=== PATIENT | female | born 1980 | race Caucasian/White ===

== ENCOUNTER 2016-06-24 06:03 | Inpatient (IN) | payer MEDICAID, OTHER ==
[~2016-06-24] VITALS: Ht 165.1 cm; Wt 75.4 kg
[~2016-06-24 06:03] MED LIST: DOCO200C7 PO; HYDR-3989 PO; IBUP-1547 PO; MAGN400C PO; PREN1TAB73 PO
[2016-06-24] MEDS ORDERED: ACETAMINOPHEN 500 MG TABLET PO PRN (06:15)
[2016-06-24] MEDS ORDERED: OXYTOCIN 30 UNIT in D5LR 500 ML PRN (06:15)
[2016-06-24] MEDS ORDERED: LIDOCAINE 1% (10mg/ml) 2ml SDV ID PRN (06:15)
[2016-06-24] MEDS ORDERED: MAG-AL + SIM LIQUID 30 ML UDC PO PRN (06:15)
[2016-06-24] MEDS ORDERED: CALCIUM CARBONATE 500mg Chewable TAB PO PRN (06:15)
[2016-06-24 06:41] LABS: HCT - HEMATOCRIT 35.8 % (36-46); MEAN CORPUSCULAR HGB 34.9 UUG (26-34); MEAN CORPUSCULAR HGB CONC(MCHC 33.5 GM/DL (31-37); MEAN CORPUSCULAR VOLUME 104.1 UM3 (80-100); MEAN PLATELET VOLUME 8.8 UM3 (9.4-12.4); RED BLOOD COUNT 3.44 M/MM3 (4.00-5.20); WBC - WHITE BLOOD COUNT 8.9 T/MM3 (4.5-11.0)
[2016-06-24] MEDS: LR 1,000 ML IV PRN ×3 (06:46→09:43)
[2016-06-24 06:48] VITALS: BP 106/56; PULSE 86; RESP 14; TEMP 98.5; O2SAT 99
[2016-06-24] MEDS ORDERED: D5LR 1,000 ML IV PRN (07:00)
--- NOTE | 2016-06-24 08:33 | ANESOB ---
Epidural/ Date/Time DATE: 06/24/16 TIME: 824 Preop Diagnosis Procedure: Labor Epidural Plan: Epidural Height: 5 ' 5.00 " Weight: 75.400 kg BMI: kg/m2 P:4 Medications & Allergies Inpatient Medications Current Medications Medications (Trade) Dose Ordered Sig/Sheri Start Time Stop Time Status Last Admin Dose Admin Dextrose/Lactated Ringer's 1,000 ml @ 0 mls/hr Q0M PRN 06/24/16 07:00 06/24/16 06:47 0 MLS/HR Oxytocin/Dextrose/ Lactated Ringer's (Pitocin/D5lr) 503 ml @ 0 mls/hr Q0M PRN 06/24/16 06:15 06/24/16 06:46 0 MLS/HR Lidocaine HCl 0.2 mg 0.2 mg PRN PRN 06/24/16 06:15 Lactated Ringer's (Lactated Ringers) 1,000 ml @ 0 mls/hr Q0M PRN 06/24/16 06:04 06/24/16 06:46 0 MLS/HR Acetaminophen (Tylenol Extra Strength) 1-2 TABS = 500-1,000 MG Q4H PRN 06/24/16 06:15 Al Hydroxide/Mg Hydroxide (Maalox) 30 ml Q4H PRN 06/24/16 06:15 Calcium Carbonate (TUMS Regular Strength) 1-2 TABS Q2H PRN 06/24/16 06:15 Magnesium Oxide (Magnesium) 400 Mg Capsule, 400 MG PO DAILY, (Reported) Last Taken: on 06/23/162229 Pnv95/Ferrous Fumarate/FA ( Tablet) 1 Each Tablet, 1 TAB PO DAILY, (Reported) Last Taken: on 06/23/162229 Discontinued Medications Docosahexanoic Acid ( Dha) 200 Mg Capsule, 1 CAP PO DAILY, (Reported) Hydrocodone/Apap ([place] 5-325 Tablet) 1 Tab Tablet, 1-2 TAB PO Q4H PRN for PAIN Discontinued Reason: Medication Stopped Ibuprofen (Ibuprofen) 800 Mg Tablet, 800 MG PO Q8H PRN for PAIN Discontinued Reason: Medication Stopped Coded Allergies: gluten (Verified Allergy, Mild, 06/24/16) Medical/Surgical History Anesthesia PMH: Denies: *Diabetes, Anesthesia Reactions, Malignant Hyperthermia Smoking Status: Never smoker Does patient use chewing tobac: No Substance Use Type: does not use Alcohol Intake: none Last Drink: hours (ago) (4) Anesthesia Adverse Reactions: FOUND none Family Hx of Anesthesia Advers: none Hx of Motion Sickness: No Complications During : No Pertinent Findings Laboratory Tests 06/24/16 06:25 Physical Exam Respiratory: Lungs clear Cardiovascular: Regular rate, rhythm Airway Assessment Mallampati Score: I TMD: 3 Fingerbreadths Neck Extension: Good Overall Assessment: May Be Diff Mask Vent., May Be Diff Intubation ASA: 2 Discussion Discussed risks/options/alternatives of anesthesia. Patient consents. Nursing pain assessment noted. Present for Discussion: Present: Spouse Attestation Statement Prior to the delivery of any anesthetic medication, I examined the patient, developed the plan, obtained the patient's consent and discussed the risk and benefits of the procedure with the patient/guardian. If the note happens to be signed after anesthesia start time, it is only due to providing efficient care of the patient and documenting at a time when the computer is available. SERGIO GUERRERO CRNA Jun 24, 2016 08:33
[2016-06-24] MEDS ORDERED: DiphenhydrAMINE 50 MG/ML INJECTION IV PRN (08:45)
[2016-06-24] MEDS ORDERED: NALOXONE 0.4mg/ml INJECTION IV PRN (08:45)
[2016-06-24] MEDS ORDERED: ROPIVACAINE 1% 200 MG, SUFENTANIL 50 MCG in NORMAL SALINE 80 ML EPI PRN (08:45)
[2016-06-24] MEDS ORDERED: ONDANSETRON 4mg/2ml INJECTION IV PRN (08:45)
[2016-06-24] MEDS ORDERED: OXYTOCIN 30 UNIT in D5W 500 ML IV ONE (11:45)
[2016-06-24] MEDS ORDERED: PHENYLEPHRINE RECTAL SUPPOSITORY RECTALLY PRN (11:45)
[2016-06-24] MEDS ORDERED: MILK OF MAGNESIA 30 ML SUSP PO PRN (11:45)
[2016-06-24] MEDS ORDERED: DiphenhydrAMINE 25 MG CAPSULE PO PRN (11:45)
[2016-06-24] MEDS ORDERED: HYDROCORTISONE 2.5% CREAM 30 GM RECTALLY PRN (11:45)
[2016-06-24] MEDS: IBUPROFEN 800 MG TABLET PO PRN ×2 (14:39→23:09)
[2016-06-24 15:10] VITALS: BP 95/55; PULSE 68; RESP 14; TEMP 98.2; O2SAT 100
--- NOTE | 2016-06-24 15:18 | NUR ---
Epidural Epidural catheter removed without complications, tip intact, no S/S of infection noted. Area cleansed with alcohol, betadine and covered with a bandaid. Pt. educated about S/S of infection and to call doctor with concerns.
--- NOTE | 2016-06-24 17:23 | ANESPO ---
Post-Op Note Date 06/24/16 Time: 17:09 Status Pt Participated in Evaluation: Pt participated in person Vital Signs Date Time Temp Pulse Resp B/P Pulse Ox O2 Delivery O2 Flow Rate FiO2 06/24/16 15:10 98.2 68 14 95/55 100 Room Air Respiratory Function: Airway patent Cardiovascular Function: Regular pulse Mental Status: Alert/oriented Pain Level Intensity: 0 Hydration: Taking po fluids Complications during Recovery None apparent Follow-Up Instructions Instructions Per Surgeon Additional Information full motor and sensation has returned SERGIO GUERRERO CRNA Jun 24, 2016 17:23
[2016-06-24 23:16] VITALS: BP 110/64; PULSE 80; RESP 16; TEMP 98.4
[2016-06-24] MEDS: LR 1,000 ML IV SCH (23:58)
[2016-06-25] VITALS (29 sets, daily range): BP systolic 82–111; BP diastolic 48–67; PULSE 55–82; RESP 10–20; TEMP 75–98.3; O2SAT 97–100
[2016-06-25] MEDS ORDERED: MORPHINE SULFATE 4 MG SYRINGE IV PRN (00:05)
[2016-06-25] MEDS ORDERED: ONDANSETRON 4mg/2ml INJECTION IV PRN (00:05)
--- NOTE | 2016-06-25 02:35 | NUR ---
SHIFT SUMMARY: VSS, pt's pain controlled with PO Motrin. Fundus firm at umbilicus, light lochia. RN assist pt to BRP and performed pericare at start of shift. Pt up ad mai, voiding and performing own marian care by self w/o complication. General diet tolerated. well, no assistance needed with latch or positioning. Consent signed for tubal ligation in the AM. IV in pt's left hand infusing LR @ 125ml/hr. Pt bonding and caring for baby appropriately.
[2016-06-25 05:25] LABS: HCT - HEMATOCRIT 28.6 % (36-46); HGB - HEMOGLOBIN 9.5 GM/DL (12-16); MEAN CORPUSCULAR HGB 34.7 UUG (26-34); MEAN CORPUSCULAR HGB CONC(MCHC 33.2 GM/DL (31-37); MEAN CORPUSCULAR VOLUME 104.4 UM3 (80-100); MEAN PLATELET VOLUME 8.7 UM3 (9.4-12.4); RED BLOOD COUNT 2.74 M/MM3 (4.00-5.20); WBC - WHITE BLOOD COUNT 10.3 T/MM3 (4.5-11.0)
--- NOTE | 2016-06-25 06:24 | NUR ---
OR Pt taken by wheelchair to OR at this time.
--- NOTE | 2016-06-25 06:36 | NUR ---
Call to Dr. Lawler results called to Dr. Wade.
--- NOTE | 2016-06-25 06:47 | ANESPREOP ---
Anesthesia Record Date and Time DATE: 06/25/16 TIME: 06:45 Proposed Surgical Procedure post tubal ligation NPO since: 06/24/16 Allergies: Coded Allergies: gluten (Verified Allergy, Mild, 06/24/16) Ht/Wt/BMI Height: 5 ' 5.00 " Weight: 75.400 kg BMI: kg/m2 Vital Signs Date Time Temp Pulse Resp B/P Pulse Ox O2 Delivery O2 Flow Rate FiO2 06/24/16 23:16 98.4 80 16 110/64 Room Air 06/24/16 15:10 100 Medications Inpatient Medications Current Medications Medications (Trade) Dose Ordered Sig/Sheri Start Time Stop Time Status Last Admin Dose Admin Dextrose/Lactated Ringer's 1,000 ml @ 0 mls/hr Q0M PRN 06/24/16 07:00 06/24/16 11:45 DC 06/24/16 06:47 0 MLS/HR Oxytocin/Dextrose/ Lactated Ringer's (Pitocin/D5lr) 503 ml @ 0 mls/hr Q0M PRN 06/24/16 06:15 06/24/16 11:45 DC 06/24/16 06:46 0 MLS/HR Lidocaine HCl 0.2 mg 0.2 mg PRN PRN 06/24/16 06:15 06/24/16 11:45 DC Lactated Ringer's (Lactated Ringers) 1,000 ml @ 0 mls/hr Q0M PRN 06/24/16 06:04 06/24/16 11:45 DC 06/24/16 09:43 0 MLS/HR Acetaminophen (Tylenol Extra Strength) 1-2 TABS = 500-1,000 MG Q4H PRN 06/24/16 06:15 Al Hydroxide/Mg Hydroxide (Maalox) 30 ml Q4H PRN 06/24/16 06:15 Calcium Carbonate 1-2 TABS Q2H PRN 06/24/16 06:15 Ropivacaine/ Sufentanil Citrate/Sodium Chloride (Naropin/Sufenta/ NS) 101 ml @ 10 mls/hr PRN PRN 06/24/16 08:45 06/25/16 01:55 DC Naloxone HCl (Narcan) 0.1 mg Q2M PRN 06/24/16 08:45 06/25/16 01:55 DC Ondansetron HCl (Zofran) 4 mg Q6H PRN 06/24/16 08:45 06/24/16 11:45 DC Diphenhydramine HCl (Benadryl) 25-50 MG = 0.5-1 ML Q3H PRN 06/24/16 08:45 06/25/16 01:55 DC Ibuprofen (Motrin) 800 mg Q8H PRN 06/24/16 11:45 06/24/16 23:09 800 MG Acetaminophen/ Hydrocodone Bitart ([place] 5/325) Not to exceed 10 tabs in... Q4H PRN 06/24/16 11:45 Docusate Calcium (SURFAK 240 mg) 240 mg DAILY 06/25/16 09:00 Magnesium Hydroxide (Mom) 30 ml DAILY PRN 06/24/16 11:45 Diphenhydramine HCl (Benadryl) 1-2 TABS Q6H PRN 06/24/16 11:45 06/25/16 01:55 DC Phenylephrine HCl (Anusol Suppository) 1 supp PRN PRN 06/24/16 11:45 Hydrocortisone 1 applic 1 applic PRN PRN 06/24/16 11:45 Lactated Ringer's (Lactated Ringers) 1,000 ml @ 125 mls/hr Q8H 06/25/16 00:05 06/24/16 23:58 125 MLS/HR Morphine Sulfate (Morphine) 2-4 Q2H PRN 06/25/16 00:05 Ondansetron HCl (Zofran) 4 mg Q4H PRN 06/25/16 00:05 Magnesium Oxide (Magnesium) 400 Mg Capsule, 400 MG PO DAILY, (Reported) Last Taken: on 06/23/162229 Pnv95/Ferrous Fumarate/FA ( Tablet) 1 Each Tablet, 1 TAB PO DAILY, (Reported) Last Taken: on 06/23/162229 Discontinued Medications Docosahexanoic Acid ( Dha) 200 Mg Capsule, 1 CAP PO DAILY, (Reported) Hydrocodone/Apap ([place] 5-325 Tablet) 1 Tab Tablet, 1-2 TAB PO Q4H PRN for PAIN Discontinued Reason: Medication Stopped Ibuprofen (Ibuprofen) 800 Mg Tablet, 800 MG PO Q8H PRN for PAIN Discontinued Reason: Medication Stopped Currently on Beta Carolyn: No Medical/Surgical History Smoking Status: Never smoker Use Chewing Tobacco?: No Substance Use Type: does not use Last Drink: hours (ago) (4) Past Surgical History Orthopedic Surgeries: Abdominal Surgeries: Genitourinary Surgeries: Cardiac Surgeries: Endocrine Surgeries: Reproductive Surgeries: Neurological Surgeries: Ear Surgeries: Nose Surgeries: Throat Surgeries: Other Surgeries: Anesthesia Adverse Reactions: FOUND none Family Hx of Anesthesia Advers: none Hx of Motion Sickness: No Pertinent Findings Laboratory Tests 06/25/16 05:01 EKG Rhythm: Sinus Rhythm Physical Exam Respiratory: Bilat breath sounds equal, Lungs clear Cardiovascular: FOUND Regular rate, rhythm Airway Assessment Mallampati Score: II TMD: 3 Fingerbreadths Neck Extension: Good Overall Assessment: May Be Diff Mask Vent., May Be Diff Intubation ASA: 2 Discussion Discussed risks/options/alternatives of anesthesia and questions answered. Patient consents. Nursing pain assessment noted. Present: Spouse Attestation Statement Prior to the delivery of any anesthetic medication, I examined the patient, developed the plan, obtained the patient's consent and discussed the risk and benefits of the procedure with the patient/guardian. CHRISS ROLLE Jun 25, 2016 06:47
[2016-06-25] MEDS ORDERED: BUPIVACAINE 0.25% (2.5mg/ml) INJ 30ml SDV ONE (06:52)
[2016-06-25] MEDS ORDERED: MIDAZOLAM 2mg/2ml INJECTION ONE (06:53)
[2016-06-25] MEDS ORDERED: FENTANYL 100mcg/2ml INJECTION ONE (06:53)
[2016-06-25] MEDS ORDERED: PROPOFOL 500mg 50 ML IV ONE (07:01)
--- NOTE | 2016-06-25 07:09 | PNPDOC ---
Progress Note PPD1 Rubella: Immune GBS: Negative Blood Type:A pos Subjective 06/25/16 Lochia: Minimal Pain: Controlled Voiding: Voiding She desires a PPTL. Objective Vital Signs Date Time Temp Pulse Resp B/P Pulse Ox O2 Delivery O2 Flow Rate FiO2 06/25/16 06:42 98.3 78 15 106/67 99 Room Air General: Alert and Oriented Abdomen: Fundus Firm, Non-tender Extremities: Non-tender Laboratory Item Value Date Time Hemoglobin 9.5 GM/DL L # 06/25/16 0501 Assessment (1) (spontaneous vaginal delivery) Plan: Routine Care (2) Request for sterilization Assessment & Plan: PPTL. We reviewed that this is a permanent procedure, but there is also a risk of failure and ectopic. Q&A. She desires to proceed. (3) Acute blood loss anemia Plan: JANE Parker MD Jun 25, 2016 07:09
[2016-06-25] MEDS ORDERED: HYDR-4246 PO (07:22)
[2016-06-25] MEDS ORDERED: IRON150C5 PO (07:22)
[2016-06-25] MEDS ORDERED: IBUP-1547 PO (07:22)
--- NOTE | 2016-06-25 08:05 | GYNOPNOTE1 ---
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
[2016-06-25] MEDS: HYDROMORPHONE 2mg/ml INJECTION IV PRN ×2 (08:31→08:43)
--- NOTE | 2016-06-25 08:45 | LDNF ---
DATE 06/24/2016 Anita is a 35-year-old 5, para 4 at 39 weeks 2 days gestational age who was brought in for a Pitocin induction this morning because she desires a tubal ligation. Her membranes were ruptured artificially returning clear fluids. She received an epidural. She progressed nicely throughout labor. She only had to push for two contractions and had a spontaneous vaginal delivery of a viable male , Apgars 9/9, weight 4115 grams, name "Samson". The baby was vigorous at delivery so he was placed on mom's abdomen. The cord clamping was delayed for more than two minutes. The cord started to tear a little bit during cord clamping. There was still a small leakage of blood from the umbilical cord, so a second cord clamp was placed below the first one and then no bleeding was seen. The placenta delivered spontaneously. She had a small second-degree laceration that was repaired in the standard fashion. Mom and baby tolerated the delivery well. LUIS
[2016-06-25] MEDS: LR 1,000 ML IV SCH (08:49)
[2016-06-25] MEDS ORDERED: DOCUSATE CALCIUM 240 MG CAPSULE PO SCH (09:00)
[2016-06-25] MEDS ORDERED: METOCLOPRAMIDE 10mg/2ml INJECTION IV ONE (09:15)
--- NOTE | 2016-06-25 09:25 | NUR ---
On Unit Pt back to unit from OR at this time moved to bed with transfer board. Reports pain at 6/10 in back from spinal and abdomen. Rice bag provided and ice chips give. VSS.
[2016-06-25] MEDS: IBUPROFEN 800 MG TABLET PO PRN ×2 (10:04→22:36)
[2016-06-25] MEDS: HYDROCODONE/APAP 5 mg/325 mg TABLET PO PRN ×3 (10:05→18:38)
--- NOTE | 2016-06-25 10:52 | ANESPO ---
Post-Op Note Date 06/25/16 Time: 10:51 Status Pt Participated in Evaluation: Pt participated in person Vital Signs Date Time Temp Pulse Resp B/P Pulse Ox O2 Delivery O2 Flow Rate FiO2 06/25/16 10:29 76 16 100/61 99 06/25/16 10:00 Room Air 06/25/16 09:28 97.9 Respiratory Function: Airway patent Cardiovascular Function: Regular pulse Mental Status: Alert/oriented Pain Level Intensity: 2 Hydration: Taking po fluids Complications during Recovery None apparent Follow-Up Instructions Instructions Per Surgeon SERGIO GUERRERO CRNA Jun 25, 2016 10:52
--- NOTE | 2016-06-25 11:10 | OPNOTEF ---
DATE OF OPERATION 06/25/2016 PREOPERATIVE DIAGNOSIS 1. Desires permanent sterilization. 2. Status post spontaneous vaginal delivery. POSTOPERATIVE DIAGNOSIS 1. Desires permanent sterilization. 2. Status post spontaneous vaginal delivery. PROCEDURE tubal ligation via modified [place] method. SURGEON Violeta Wade MD ANESTHESIA Spinal COST ESTIMATING CLERK Marty Ohara CRNA COMPLICATIONS None. EBL 10 mL FINDINGS Fundus firm at the level of the umbilicus. Normal-appearing tubes and ovaries. DESCRIPTION OF PROCEDURE The patient was taken to the operating room where anesthesia was obtained. She was placed in the dorsal supine position. She voided just prior to coming back to the operating room. She was prepared and draped in the normal sterile fashion. The subumbilical skin and tissue was injected with local. Two Allis clamps were placed on the infraumbilical skin just lateral to the umbilicus. An incision was made between the two Allis clamps. The underlying tissue was opened with a Jocelyn. The fascia was grasped with a Jocelyn and entered sharply with the Metzenbaum scissors. The peritoneum was entered during this process as well. The fascial incision was extended laterally. The patient was then tilted to her right. [place] retractors were used to retract the abdominal wall to visualize to the left fallopian tube. This was grasped with a Murtaugh and carried out to the fimbria. An avascular segment was ligated with chromic. Each end of the segment was ligated with silk. The tube segment was excised with good hemostasis noted. The remaining tube was injected with local. The tube was allowed to fall freely back into the abdomen. The patient was tilted to her left and this was all repeated with the right fallopian tube. Good hemostasis was also noted. The patient was flattened and all instruments were removed. The fascia was closed with running 0 Vicryl. Hemostasis was obtained in the subcutaneous tissue with the cautery. The skin was closed with 4-0 Vicryl in a subcuticular manner. Dermabond was placed. Sponge and sharp counts were correct. The patient tolerated the procedure well and was taken to the recovery room in good condition. [facility]PITAL[facility]
[2016-06-25] MEDS: IRON POLYSACCHARIDES COMPLEX 150 MG CAPSULE PO SCH (11:45)
--- NOTE | 2016-06-25 15:00 | NUR ---
Shift Summary VSS. Voiding and providing self cares. Pain controlled with oral pain meds. Breast feeding well x2.
--- NOTE | 2016-06-26 02:48 | NUR ---
Chart Check 24 hour chart check completed
--- NOTE | 2016-06-26 02:49 | NUR ---
SHIFT SUMMARY: VSS, pt's pain controlled with PO Motrin and [place] 5. Fundus firm at umbilicus, scant to light lochia. PPTL incision intact with Dermabond, no s/s of infection. IV dc'd, no complications. Pt up ad mai, voiding and performing own personal cares. General diet tolerated. Pt baby well, no RN assistance needed. Pt bonding and caring for baby appropriately. Baby currently in nursery to allow pt to sleep.
[2016-06-26] MEDS: HYDROCODONE/APAP 5 mg/325 mg TABLET PO PRN ×2 (03:25→07:48)
[2016-06-26 07:00] VITALS: BP 114/65; PULSE 85; RESP 16; TEMP 97.7; O2SAT 100
[2016-06-26] MEDS: IBUPROFEN 800 MG TABLET PO PRN (07:48)
--- NOTE | 2016-06-26 08:05 | PNPDOC ---
Progress Note PPD2 Rubella: Immune GBS: Negative Blood Type:A pos Subjective 06/26/16 Lochia: Moderate Pain: Controlled Voiding: Voiding Nausea and Vomiting: No Nausea/Vomiting Objective VSS AF Vital Signs Date Time Temp Pulse Resp B/P Pulse Ox O2 Delivery O2 Flow Rate FiO2 06/26/16 07:00 97.7 85 16 114/65 100 Room Air General: Alert and Oriented Respiratory: Non-labored Abdomen: Fundus Firm Incision: Clean/Dry/Intact Extremities: Non-tender 1+ Assessment Tubal Ligation (1) (spontaneous vaginal delivery) Plan: Routine Care (2) Request for sterilization Assessment & Plan: PPTL. We reviewed that this is a permanent procedure, but there is also a risk of failure and ectopic. Q&A. She desires to proceed. Plan: Discharge Home (3) Acute blood loss anemia Plan: [place], Discharge Home Plan Discharge Home (Rx of [place] and Ibuprofen given to patient on 06/25 to fill prior to leaving hospital.) GARRISON FOLEY APRN Jun 26, 2016 08:05
[2016-06-26] MEDS: IRON POLYSACCHARIDES COMPLEX 150 MG CAPSULE PO SCH (09:13)
--- NOTE | 2016-06-26 09:55 | NUR ---
Dismissal Dismissal instructions reviewed with patient. Questions answered. Verbalized understanding. Pain controlled. Reports headache now. Feels like it will subside after she gets home and has a chance to rest. Incision clean and dry. Has home Rx filled. Dismissed ambulatory accompanied by baby and younger 2 children.
== END 2016-06-26 09:55 | disposition home or self-care (01) | DRG 767 ==
LOC: MC 06:03
PROVIDERS: ADMIT Obstetrics & Gynecology; ATTEND Obstetrics & Gynecology
PROC: 10E0XZZ Delivery of Products of Conception, External Approach (ICD-10-PCS; principal; 2016-06-24)
PROC: 0KQM0ZZ Repair Perineum Muscle, Open Approach (ICD-10-PCS; 2016-06-24)
PROC: 3E033VJ Introduction of Other Hormone into Peripheral Vein, Percutaneous Approach (ICD-10-PCS; 2016-06-24)
PROC: 10907ZC Drainage of Amniotic Fluid, Therapeutic from Products of Conception, Via Natural or Artificial Opening (ICD-10-PCS; 2016-06-24)
PROC: 0UB70ZZ Excision of Bilateral Fallopian Tubes, Open Approach (ICD-10-PCS; 2016-06-25)
DX: O36.63X0 Maternal care for excessive fetal growth, third trimester, not applicable or unspecified (principal); O70.1 Second degree perineal laceration during delivery; Z30.2 Encounter for sterilization; O32.8XX0 Maternal care for other malpresentation of fetus, not applicable or unspecified; O09.523 Supervision of elderly multigravida, third trimester; O99.62 Diseases of the digestive system complicating childbirth; K90.0 Celiac disease; Z3A.39 39 weeks gestation of pregnancy; Z37.0 Single live birth
CPT/HCPCS: 36415; 85027; 86850; 86900; 86901

== ENCOUNTER 2016-06-28 18:00 | Outpatient (CLI) | payer MEDICAID ==
[~2016-06-28 18:00] MED LIST changes: -DOCO200C7 PO; -HYDR-3989 PO; +HYDR-4246 PO; +IRON150C5 PO
[2016-06-28 18:05] VITALS: BP 128/69; PULSE 88; RESP 18; TEMP 98.4
--- NOTE | 2016-06-28 18:24 | ANESPD ---
Peripheral Nerve Blockade Physician: Violeta Wade MD Date: 06/28/16 Surgical Procedure: SPG Ganglion Block Discussion Discussed risks/options/alternatives of anesthesia and questions answered. Patient consents. Nursing pain assessment noted. Block Start: 18:15 Block Stop: 18:20 Block Employed: Other (SPG Block) Indication: post-operative pain Position: supine Patient: risks/benefits discussed, Informed, post block act. discussed IV Sedation: No Sedation: Awake Initial Pain Score: 10 Post Block Score: 0 Ultrasound Used?: No Injectate Lidocaine (%): 4 Lidocaine (mL): 1 Was Epi 1:200,000 Used?: No Injection Injection made incrementally with constant monitoring and aspiration every [] ml. LUIS VICKERS CRNA Jun 28, 2016 18:24
--- NOTE | 2016-06-28 18:50 | NUR ---
Anesthesia Procedure Hoang Cordova CRNA assesses patient and pain d/t postdural puncture headache. Before procedure, patient rates headache pain of 10/10. ANILINE PRESS WORKER performs a ganglion nerve block with 4% lidocaine. Swabs inserted at 1815, removed at 1850. Post procedure, patient reports pain of 2/10. ANILINE PRESS WORKER advises patient she may resume normal activity and go home.
[2016-06-28 19:00] VITALS: BP 114/57; PULSE 72; RESP 16; TEMP 97.9
[2016-06-28] MEDS ORDERED: LIDOCAINE 4% (40mg/ml) INJ. PF 5ml AMP ID ONE (22:00)
== END 2016-06-28 19:10 | disposition home or self-care (01) ==
LOC: INF.THER 18:00 → MC 18:00 → OBOBS 19:10
PROVIDERS: ATTEND Obstetrics & Gynecology
DX: O89.4 Spinal and epidural anesthesia-induced headache during the puerperium (principal)
CPT/HCPCS: 64505